=== PATIENT | male | born 1990 | race Hispanic/Latino ===

== ENCOUNTER 2017-02-09 10:38 | Emergency (ER) | payer SELFPAY ==
[~2017-02-09] VITALS: Ht 180.3 cm; Wt 117.5 kg
[2017-02-09 12:04] LABS: HEMATOCRIT 44.9 % (38.0-50.0); MCHC 33.4 G/DL (30.0-36.0); MCV 89.8 FL (86-99); MEAN PLAT.VOLUME 9.9 uM^3 (9.0-12.4); PLATELET COUNT 292 K/uL (156-360); RBC DIS.WIDTH-CV 12.6 % (11.8-14.6); RBC DIS.WIDTH-SD 41.3 % (39-53); WHITE BLOOD COUNT 13.3 K/uL (4.1-10.2)
[2017-02-09 12:17] LABS: CHLORIDE 104 mEq/L (99-109); POTASSIUM 4.1 mEq/L (3.7-5.4); SODIUM 140 mEq/L (136-147)
[2017-02-09 12:18] LABS: GLUCOSE 109 mg/dL (70-99)
[2017-02-09 12:20] LABS: ANION GAP 9 MEQ/L (2-14)
[2017-02-09 12:23] LABS: UREA NITROGEN (BUN) 16 mg/dL (9-23)
[2017-02-09 12:32] LABS: ADD MIUA? YES; BILIRUBIN NEGATIVE; BLOOD LARGE; COLOR YELLOW ((YELLOW)); GLUCOSE (STRIP) NEGATIVE; KETONES NEGATIVE; LEUKOCYTES NEGATIVE; NITRITE NEGATIVE; PROTEIN (STRIP) 30; SPECIFIC GRAVITY 1.027 (1.000-1.030); UROBILINOGEN 0.2 MG/DL (0.2-1.0)
[2017-02-09 12:42] LABS: BACTERIA NONE SEEN /HPF; EPITHELIAL CELLS RARE /HPF; MUCUS 1+ /LPF; RED BLOOD CELLS TNTC /HPF (0-5); UCUL ADDED? NO
[2017-02-09 12:45] LABS: GFR ESTIMATE (CALCULATED) > 59 mL/min/
[2017-02-09] MEDS ORDERED: NORCO 5/3251 TABLET PO (14:28)
[2017-02-09] MEDS ORDERED: ZOFRAN ODT8 MG PO (14:28)
[2017-02-09] MEDS ORDERED: FLOMAX0.4 MG PO (14:28)
[2017-02-09 14:51] VITALS: BP 150/84
== END 2017-02-09 14:52 | disposition home or self-care (01) ==
LOC: EME 10:38
DX: N23 Unspecified renal colic (principal); R31.9 Hematuria, unspecified; Z87.442 Personal history of urinary calculi; F17.200 Nicotine dependence, unspecified, uncomplicated
CPT/HCPCS: 80048; 81003; 85027; 99281; 99284